=== PATIENT | female | born 1960 | race African-American/Black ===

== ENCOUNTER 2017-07-28 07:14 | Emergency (ER) | payer MEDICAID ==
[~2017-07-28] VITALS: Ht 154.9 cm; Wt 78.0 kg
[~2017-07-28 07:14] MED LIST: AMLO5TAB4; LISI5TAB
[2017-07-28] MEDS ORDERED: AMPICILLIN SOD/SULBACTAM NA 1.5 G in SODIUM CHLORIDE 0.9% 50 ML IV SCH ×2 (10:45→20:00)
[2017-07-28] MEDS ORDERED: DEXAMETHASONE 10 MG/ML VIAL IV ONE (10:45)
[2017-07-28 11:02] LABS: BASOPHILS % 0.9 % (0.0-2.0); HEMOGLOBIN. 12.8 g/dL (12.0-16.0); LYMPHOCYTES % 16.4 % (20.0-50.0); MEAN CORPUSCULAR HEMOGLOBIN 25.8 pg (28.0-32.0); MEAN CORPUSCULAR VOLUME 78.6 fL (81.0-99.0); MONOCYTES % 6.4 % (2.0-8.0); NEUTROPHILS % 75.3 % (40.0-76.0); PLATELET 399 x1000/uL (130-400); RED BLOOD CELL COUNT 4.97 mill/uL (4.2-5.4); RED CELL DISTRIBUTION WIDTH 15.2 % (11.6-14.6)
[2017-07-28 11:13] LABS: CARBON DIOXIDE 28 mEq/L (21-32); CHLORIDE 105 mEq/L (98-107)
[2017-07-28] MEDS ORDERED: IOHEXOL-300 100 ML BOTTLE ONE (11:50)
[2017-07-28] MEDS ORDERED: SODIUM CHLORIDE 0.9% 10ML VIAL ONE (11:50)
[2017-07-28] MEDS ORDERED: KETOROLAC 30MG/ML VIAL IV STA (13:41)
[2017-07-28] MEDS ORDERED: SODIUM CHLORIDE 0.9% 1,000 ML IV ONE (14:39)
[2017-07-28] MEDS ORDERED: AMLODIPINE 10MG TABLET PO ONE (20:00)
[2017-07-28] MEDS ORDERED: CARVEDILOL 6.25 MG TABLET PO ONE (20:00)
[2017-07-28 22:16] VITALS: BP 127/76
== END 2017-07-29 01:30 | disposition short-term general hospital (02) ==
LOC: ER 08:54
DX: J36 Peritonsillar abscess (principal); I10 Essential (primary) hypertension
CPT/HCPCS: 36415; 70491; 80053; 85025; 96361; 96365; 96366; 96375; 99285; A4216; J0295; J1100; J1885; J7030; Q9967; Z7610